=== PATIENT | male | born 1960 | race Caucasian/White ===

== ENCOUNTER 2022-06-03 05:24 | Inpatient (IN) | payer MEDICAID ==
[2022-06-03] VITALS (47 sets, daily range): BP systolic 87–139; BP diastolic 57–88
[~2022-06-03] VITALS: Ht 167.6 cm; Wt 103.0 kg
[2022-06-03 05:55] LABS: BASOPHILS % 0.8 % (0.0-2.0); EOSINOPHILS % 1.1 % (0.0-5.0); HEMATOCRIT. 39.3 % (42.0-52.0); HEMOGLOBIN. 13.6 g/dL (14.0-18.0); LYMPHOCYTES % 37.1 % (20.0-50.0); MEAN CORPUSCULAR HEMOGLOBIN 29.5 pg (28.0-32.0); MEAN CORPUSCULAR VOLUME 84.9 fL (80.0-94.0); MEAN PLATELET VOLUME 8.1 fl (7.4-10.4); MONOCYTES % 6.3 % (2.0-8.0); NEUTROPHILS % 54.7 % (40.0-76.0); PLATELET 189 x1000/uL (130-400); RED BLOOD CELL COUNT 4.63 mill/uL (4.7-6.1); RED CELL DISTRIBUTION WIDTH 14.2 % (11.6-14.6)
[2022-06-03 06:03] LABS: CHLORIDE 106 mEq/L (98-107)
[2022-06-03] MEDS ORDERED: SODIUM CHLORIDE 0.9% 1,000 ML IV SCH (06:15)
[2022-06-03 06:27] LABS: CLARITY URINE CLEAR (CLEAR); COLOR URINE YELLOW (YELLOW); KETONES URINE NEGATIVE (NEGATIVE); LEUKOCYTE ESTERASE URINE NEGATIVE (NEGATIVE); NITRITE URINE NEGATIVE (NEGATIVE); OCCULT BLOOD URINE NEGATIVE (NEGATIVE); PH URINE 5.5 (4.5-8.0); PROTEIN URINE 2+ (NEGATIVE); SPECIFIC GRAVITY URINE 1.018 (1.005-1.030)
[2022-06-03 06:33] LABS: PARTIAL THROMBOPLASTIN TIME 25.6 sec (23.4-31.0); PROTHROMBIN TIME 10.4 sec (9.6-11.0)
[2022-06-03] MEDS ORDERED: LIDOCAINE HCL 1%/EPI 1:200,000 30 ML VIAL ONE ×2 (06:39→06:40)
[2022-06-03] MEDS ORDERED: THROMBIN (BOVINE) 5000 UNITS/VIAL TOP ONE (06:39)
[2022-06-03] MEDS ORDERED: GENTAMICIN SULF 40MG/ML 2ML VIAL ONE (06:40)
[2022-06-03] MEDS ORDERED: LIDOCAINE HCL 1% 10 MG/ML 10ML VIAL ONE (06:47)
[2022-06-03] MEDS ORDERED: CEFAZOLIN SODIUM 1000MG/VIAL ONE (06:47)
[2022-06-03] MEDS ORDERED: ONDANSETRON HCL 4MG/2ML INJ ONE (06:47)
[2022-06-03] MEDS ORDERED: ROCURONIUM BROMIDE 10MG/ML VIAL 5ML IV ONE ×2 (06:47→08:41)
[2022-06-03] MEDS ORDERED: SUCCINYLCHOLINE CHLORIDE 200MG/10ML IV ONE (06:47)
[2022-06-03] MEDS ORDERED: DEXAMETHASONE 4MG/ML 1ML VIAL ONE (06:47)
[2022-06-03] MEDS ORDERED: PROPOFOL 200MG/20ML VIAL IV ONE ×2 (06:48→07:39)
[2022-06-03] MEDS ORDERED: GLYCOPYRROLATE 0.2 MG/ML 2ML VIAL ONE ×2 (06:48)
[2022-06-03] MEDS ORDERED: NEOSTIGMINE METHYLSULFATE 1MG/ML 10 ML VIAL ONE (06:48)
[2022-06-03] MEDS ORDERED: FENTANYL CITRATE/PF 50MCG/ML 2ML VIAL ONE (06:49)
[2022-06-03] MEDS ORDERED: MIDAZOLAM HCL 2 MG/2 ML VIAL ONE ×2 (06:49→09:07)
[2022-06-03] MEDS ORDERED: HYDROMORPHONE HCL/PF 2MG/ML CPJ ONE (08:05)
[2022-06-03] MEDS ORDERED: ATOR40TA70 PO (08:12)
[2022-06-03] MEDS ORDERED: TAMS-11 PO (08:12)
[2022-06-03] MEDS ORDERED: CLOP75TA33 PO (08:12)
[2022-06-03] MEDS ORDERED: INSU100I28 SQ (08:12)
[2022-06-03] MEDS ORDERED: GLIP10TA10 PO (08:12)
[2022-06-03] MEDS ORDERED: INSU100I24 SQ (08:12)
[2022-06-03] MEDS ORDERED: TRAM50TA PO (08:12)
[2022-06-03] MEDS ORDERED: BENA40TA91 PO (08:12)
[2022-06-03] MEDS ORDERED: LORA10TA7 PO (08:12)
[2022-06-03] MEDS ORDERED: ASPI-1497 PO (08:12)
[2022-06-03] MEDS ORDERED: FERR325T6 PO (08:12)
[2022-06-03] MEDS ORDERED: MIRT45TA83 PO (08:12)
[2022-06-03] MEDS ORDERED: METF-416 PO (08:12)
[2022-06-03] MEDS ORDERED: MEPERIDINE HCL/PF 25MG/ML CPJ IV PRN (09:15)
[2022-06-03] MEDS ORDERED: HYDROMORPHONE HCL/PF 2MG/ML CPJ IV PRN (09:15)
[2022-06-03] MEDS ORDERED: LABETALOL 5MG/ML SYR 20 MG/4 ML SYRINGE IV PRN (09:15)
[2022-06-03] MEDS ORDERED: ONDANSETRON HCL 4MG/2ML INJ IV PRN (09:15)
[2022-06-03] MEDS ORDERED: NALOXONE HCL 0.4MG/ML VIAL IV PRN (10:30)
[2022-06-03] MEDS: NICARDIPINE 100 MG in SODIUM CHLORIDE 0.9% 60 ML IV PRN (10:34)
[2022-06-03] MEDS: SODIUM CHLORIDE 0.9% 1,000 ML IV SCH ×2 (10:34→21:46)
[2022-06-03] MEDS: MORPHINE SULFATE 4 MG/ML CPJ (NOT FOR IM USE) IV PRN (11:37)
[2022-06-03] MEDS: DEXAMETHASONE 4MG/ML 1ML VIAL IV SCH ×3 (11:37→23:49)
[2022-06-03 12:39] LABS: BG BASE EXCESS -3.9 mmol/L (-2.0-2.0); BG CARBOXYHEMOGLOBIN 1.2 % (0.5-1.5); BG DEOXYHEMOGLOBIN 3.9 % (0.0-5.0); BG FRACTION INSPIRED OXYGEN 100; BG HCO3 ACT 22.8 mmol/L (22.0-26.0); BG METHEMOGLOBIN 0.4 % (0.0-1.5); BG OXYHEMOGLOBIN 94.5 % (94.0-97.0); BG PCO2 48.2 mmHg (35.0-45.0); BG PH 7.293 (7.350-7.450); BG PO2 87.6 mmHg (75.0-100.0); BG SAMPLE SITE RIGHT RADIAL; BG TOTAL HEMOGLOBIN 13.4 g/dL (12.0-18.0); BG VENT MODE VENT - AC
[2022-06-03] MEDS ORDERED: AMLODIPINE 5MG TABLET NG SCH (13:15)
[2022-06-03] MEDS ORDERED: CEFAZOLIN SODIUM 1000MG/VIAL IV SCH (14:00)
[2022-06-03] MEDS: CEFAZOLIN 1000MG PREMIX 50 ML IV SCH ×2 (14:07→22:36)
[2022-06-03] MEDS: PROPOFOL 10MG/ML 100ML 100 ML IV PRN ×3 (14:08→20:22)
[2022-06-03] MEDS: FENTANYL 2500MCG/250ML PMX 250 ML IV PRN (14:22)
[2022-06-03] MEDS ORDERED: IPRATROPIUM/ALBUTEROL 0.5-3(2.5)MG/3ML NEB HHN PRN (14:30)
[2022-06-03] MEDS: TAMSULOSIN HCL 0.4MG SR CAPSULE PO SCH (15:50)
[2022-06-03] MEDS ORDERED: DEXTROSE 50% WATER 50ML SYRINGE IV PRN (16:15)
[2022-06-03] MEDS: BLOOD SUGAR DIAGNOSTIC STRIP TEST SCH ×2 (16:30→20:20)
[2022-06-03] MEDS: INSULIN LISPRO 100 UNITS/ML SUBCUT SCH ×2 (17:06→20:23)
[2022-06-03] MEDS: ATORVASTATIN CALCIUM 40MG TABLET NG SCH (20:13)
[2022-06-03] MEDS: AMLODIPINE 5MG TABLET NG SCH (20:14)
[2022-06-04] VITALS (84 sets, daily range): BP systolic 84–158; BP diastolic 52–93
[2022-06-04] MEDS: PROPOFOL 10MG/ML 100ML 100 ML IV PRN ×4 (00:38→11:49)
[2022-06-04 05:01] LABS: BASOPHILS % 0.1 % (0.0-2.0); EOSINOPHILS % 0.1 % (0.0-5.0); HEMATOCRIT. 39.2 % (42.0-52.0); LYMPHOCYTES % 11.9 % (20.0-50.0); MEAN CORPUSCULAR HEMOGLOBIN 29.3 pg (28.0-32.0); MEAN CORPUSCULAR VOLUME 88.6 fL (80.0-94.0); MEAN PLATELET VOLUME 8.7 fl (7.4-10.4); MONOCYTES % 3.5 % (2.0-8.0); NEUTROPHILS % 84.4 % (40.0-76.0); PLATELET 180 x1000/uL (130-400); RED BLOOD CELL COUNT 4.43 mill/uL (4.7-6.1); RED CELL DISTRIBUTION WIDTH 14.7 % (11.6-14.6)
[2022-06-04] MEDS: DEXAMETHASONE 4MG/ML 1ML VIAL IV SCH ×2 (06:10→11:33)
[2022-06-04] MEDS: SODIUM CHLORIDE 0.9% 1,000 ML IV SCH ×3 (06:10→23:15)
[2022-06-04] MEDS: CEFAZOLIN 1000MG PREMIX 50 ML IV SCH ×2 (06:10→14:09)
[2022-06-04] MEDS: BLOOD SUGAR DIAGNOSTIC STRIP TEST SCH ×4 (06:10→21:00)
[2022-06-04] MEDS: INSULIN LISPRO 100 UNITS/ML SUBCUT SCH ×4 (06:11→22:41)
[2022-06-04] MEDS: AMLODIPINE 5MG TABLET NG SCH ×2 (08:06→22:40)
[2022-06-04] MEDS: TAMSULOSIN HCL 0.4MG SR CAPSULE PO SCH (08:06)
[2022-06-04 08:34] LABS: BG BASE EXCESS -6.3 mmol/L (-2.0-2.0); BG CARBOXYHEMOGLOBIN 0.7 % (0.5-1.5); BG DEOXYHEMOGLOBIN 6.1 % (0.0-5.0); BG HCO3 ACT 19.7 mmol/L (22.0-26.0); BG METHEMOGLOBIN 0.2 % (0.0-1.5); BG OXYGEN SATURATION 93.8 % (92.0-98.5); BG PCO2 40.9 mmHg (35.0-45.0); BG PO2 73.9 mmHg (75.0-100.0); BG SAMPLE SITE RIGHT RADIAL; BG TOTAL HEMOGLOBIN 12.1 g/dL (12.0-18.0); BG VENT MODE VENT - AC
[2022-06-04] MEDS ORDERED: SODIUM POLYSTYRENE SULFONATE 15 G/60 ML BOT PO NR ×2 (10:00→21:00)
[2022-06-04] MEDS ORDERED: INSULIN LISPRO 100 UNITS/ML SUBCUT NR ×2 (11:15→16:00)
[2022-06-04] MEDS: INSULIN GLARGINE 100 UNITS/ML SUBCUT SCH ×2 (11:34→22:41)
[2022-06-04] MEDS ORDERED: IPRATROPIUM/ALBUTEROL 0.5-3(2.5)MG/3ML NEB HHN PRN (11:45)
[2022-06-04] MEDS ORDERED: SODIUM BICARBONATE 8.4% 1 MEQ/ML 50ML SYR IV NR (11:45)
[2022-06-04] MEDS: CITRIC ACID/SODIUM CITRATE SOLN 30ML UDC PO SCH ×2 (14:09→16:24)
[2022-06-04] MEDS: FENTANYL 2500MCG/250ML PMX 250 ML IV PRN (14:10)
[2022-06-04] MEDS: ACETYLCYSTEINE 200MG/ML 20% VIAL 4ML INH SCH (15:39)
[2022-06-04] MEDS: AZITHROMYCIN 500 MG in DEXT 5% WATER 250 ML IV SCH (15:39)
[2022-06-04] MEDS: IPRATROPIUM/ALBUTEROL 0.5-3(2.5)MG/3ML NEB HHN SCH ×2 (15:39→20:06)
[2022-06-04] MEDS ORDERED: PROPOFOL 10MG/ML 100ML 100 ML IV PRN (16:15)
[2022-06-04] MEDS: ATORVASTATIN CALCIUM 40MG TABLET NG SCH (22:40)
[2022-06-05] VITALS (91 sets, daily range): BP systolic 89–188; BP diastolic 47–140
[2022-06-05] MEDS: IPRATROPIUM/ALBUTEROL 0.5-3(2.5)MG/3ML NEB HHN SCH ×5 (00:02→20:09)
[2022-06-05] MEDS: ACETYLCYSTEINE 200MG/ML 20% VIAL 4ML INH SCH ×2 (00:02→08:45)
[2022-06-05] MEDS: BLOOD SUGAR DIAGNOSTIC STRIP TEST SCH ×4 (05:24→20:30)
[2022-06-05] MEDS: INSULIN LISPRO 100 UNITS/ML SUBCUT SCH ×4 (06:31→20:29)
[2022-06-05] MEDS: NICARDIPINE 100 MG in SODIUM CHLORIDE 0.9% 60 ML IV PRN ×3 (07:15→18:25)
[2022-06-05 08:53] LABS: BG BASE EXCESS -0.5 mmol/L (-2.0-2.0); BG CARBOXYHEMOGLOBIN 0.5 % (0.5-1.5); BG DEOXYHEMOGLOBIN 4.4 % (0.0-5.0); BG FRACTION INSPIRED OXYGEN 70; BG HCO3 ACT 24.9 mmol/L (22.0-26.0); BG METHEMOGLOBIN 0.3 % (0.0-1.5); BG OXYGEN SATURATION 95.6 % (92.0-98.5); BG OXYHEMOGLOBIN 94.8 % (94.0-97.0); BG PCO2 43.7 mmHg (35.0-45.0); BG PH 7.373 (7.350-7.450); BG PO2 81.7 mmHg (75.0-100.0); BG SAMPLE SITE RIGHT RADIAL; BG TOTAL HEMOGLOBIN 10.9 g/dL (12.0-18.0); BG VENT MODE VENT - AC
[2022-06-05] MEDS: CITRIC ACID/SODIUM CITRATE SOLN 30ML UDC PO SCH ×3 (09:22→16:26)
[2022-06-05] MEDS: TAMSULOSIN HCL 0.4MG SR CAPSULE PO SCH (09:23)
[2022-06-05] MEDS: INSULIN GLARGINE 100 UNITS/ML SUBCUT SCH ×2 (09:24→20:31)
[2022-06-05] MEDS: AMLODIPINE 5MG TABLET NG SCH ×2 (09:24→20:20)
[2022-06-05] MEDS: SODIUM CHLORIDE 0.9% 1,000 ML IV SCH ×3 (09:25→23:36)
[2022-06-05] MEDS ORDERED: METHYLPREDNISOLONE SOD SUCC 125 MG/2 ML VIAL IV NR (10:30)
[2022-06-05] MEDS: AZITHROMYCIN 500 MG in DEXT 5% WATER 250 ML IV SCH (13:07)
[2022-06-05] MEDS: MORPHINE SULFATE 4 MG/ML CPJ (NOT FOR IM USE) IV PRN (14:06)
[2022-06-05] MEDS ORDERED: FUROSEMIDE 40MG/4ML VIAL IVP NR (14:15)
[2022-06-05 14:17] LABS: BG BASE EXCESS -1.6 mmol/L (-2.0-2.0); BG CARBOXYHEMOGLOBIN 0.3 % (0.5-1.5); BG DEOXYHEMOGLOBIN 13.6 % (0.0-5.0); BG FRACTION INSPIRED OXYGEN 40; BG HCO3 ACT 22.6 mmol/L (22.0-26.0); BG METHEMOGLOBIN 0.3 % (0.0-1.5); BG OXYGEN SATURATION 86.3 % (92.0-98.5); BG OXYHEMOGLOBIN 85.8 % (94.0-97.0); BG PCO2 36.4 mmHg (35.0-45.0); BG PH 7.411 (7.350-7.450); BG PO2 49.1 mmHg (75.0-100.0); BG SAMPLE SITE RIGHT RADIAL; BG TOTAL HEMOGLOBIN 11.5 g/dL (12.0-18.0); BG VENT MODE VENT - CPAP
[2022-06-05] MEDS: ATORVASTATIN CALCIUM 40MG TABLET NG SCH (20:20)
[2022-06-06] VITALS (96 sets, daily range): BP systolic 113–170; BP diastolic 34–116
[2022-06-06] MEDS: IPRATROPIUM/ALBUTEROL 0.5-3(2.5)MG/3ML NEB HHN SCH ×5 (00:10→16:34)
[2022-06-06] MEDS: ACETYLCYSTEINE 200MG/ML 20% VIAL 4ML INH SCH ×3 (00:10→16:34)
[2022-06-06 05:17] LABS: CHLORIDE 114 mEq/L (98-107)
[2022-06-06 05:20] LABS: HEMATOCRIT. 30.8 % (42.0-52.0); HEMOGLOBIN. 10.5 g/dL (14.0-18.0); MEAN CORPUSCULAR HEMOGLOBIN 29.9 pg (28.0-32.0); MEAN CORPUSCULAR VOLUME 87.7 fL (80.0-94.0); MEAN PLATELET VOLUME 8.9 fl (7.4-10.4); PLATELET 125 x1000/uL (130-400); RED BLOOD CELL COUNT 3.51 mill/uL (4.7-6.1); RED CELL DISTRIBUTION WIDTH 13.8 % (11.6-14.6)
[2022-06-06 05:25] LABS: PHOSPHORUS 3.3 mg/dL (2.5-4.9)
[2022-06-06] MEDS: INSULIN LISPRO 100 UNITS/ML SUBCUT SCH ×4 (05:34→21:21)
[2022-06-06] MEDS: BLOOD SUGAR DIAGNOSTIC STRIP TEST SCH ×4 (05:34→20:40)
[2022-06-06] MEDS: SODIUM CHLORIDE 0.9% 1,000 ML IV SCH ×2 (06:11→15:16)
[2022-06-06] MEDS: FENTANYL 2500MCG/250ML PMX 250 ML IV PRN (06:45)
[2022-06-06 08:14] LABS: PLATELET ESTIMATE SLIGHTLY DECREASED
[2022-06-06] MEDS: AMLODIPINE 5MG TABLET NG SCH ×2 (09:17→21:20)
[2022-06-06] MEDS: TAMSULOSIN HCL 0.4MG SR CAPSULE PO SCH (09:17)
[2022-06-06] MEDS: CITRIC ACID/SODIUM CITRATE SOLN 30ML UDC PO SCH ×3 (09:17→17:42)
[2022-06-06] MEDS: MORPHINE SULFATE 4 MG/ML CPJ (NOT FOR IM USE) IV PRN ×2 (09:19→22:22)
[2022-06-06] MEDS: INSULIN GLARGINE 100 UNITS/ML SUBCUT SCH ×2 (09:33→21:21)
[2022-06-06 09:39] LABS: BG BASE EXCESS -0.4 mmol/L (-2.0-2.0); BG CARBOXYHEMOGLOBIN 0.4 % (0.5-1.5); BG DEOXYHEMOGLOBIN 8.9 % (0.0-5.0); BG HCO3 ACT 23.4 mmol/L (22.0-26.0); BG METHEMOGLOBIN 0.2 % (0.0-1.5); BG OXYHEMOGLOBIN 90.5 % (94.0-97.0); BG PCO2 35.2 mmHg (35.0-45.0); BG PO2 60.1 mmHg (75.0-100.0); BG SAMPLE SITE RIGHT RADIAL; BG TOTAL HEMOGLOBIN 11.9 g/dL (12.0-18.0); BG VENT MODE VENT - CPAP
[2022-06-06] MEDS ORDERED: FUROSEMIDE 40MG/4ML VIAL IVP NR (10:00)
[2022-06-06] MEDS: NICARDIPINE 100 MG in SODIUM CHLORIDE 0.9% 60 ML IV PRN ×2 (11:50→19:01)
[2022-06-06] MEDS: AZITHROMYCIN 500 MG in DEXT 5% WATER 250 ML IV SCH (13:29)
[2022-06-06] MEDS: ATORVASTATIN CALCIUM 40MG TABLET NG SCH (21:20)
[2022-06-07] VITALS (91 sets, daily range): BP systolic 96–150; BP diastolic 28–108
[2022-06-07] MEDS: IPRATROPIUM/ALBUTEROL 0.5-3(2.5)MG/3ML NEB HHN SCH ×7 (00:02→23:58)
[2022-06-07] MEDS: ACETYLCYSTEINE 200MG/ML 20% VIAL 4ML INH SCH ×4 (00:03→23:58)
[2022-06-07] MEDS: NICARDIPINE 100 MG in SODIUM CHLORIDE 0.9% 60 ML IV PRN ×3 (01:47→17:48)
[2022-06-07] MEDS: MORPHINE SULFATE 4 MG/ML CPJ (NOT FOR IM USE) IV PRN (03:37)
[2022-06-07 05:51] LABS: BASOPHILS % 0.1 % (0.0-2.0); HEMOGLOBIN. 10.7 g/dL (14.0-18.0); LYMPHOCYTES % 13.8 % (20.0-50.0); MEAN CORPUSCULAR VOLUME 86.8 fL (80.0-94.0); MEAN PLATELET VOLUME 8.8 fl (7.4-10.4); MONOCYTES % 7.9 % (2.0-8.0); NEUTROPHILS % 78.2 % (40.0-76.0); PLATELET 133 x1000/uL (130-400); RED BLOOD CELL COUNT 3.69 mill/uL (4.7-6.1); RED CELL DISTRIBUTION WIDTH 13.5 % (11.6-14.6)
[2022-06-07 05:59] LABS: CHLORIDE 114 mEq/L (98-107)
[2022-06-07] MEDS: BLOOD SUGAR DIAGNOSTIC STRIP TEST SCH ×4 (06:27→20:47)
[2022-06-07] MEDS: HYDRALAZINE 20MG/ML VIAL IV PRN ×2 (06:31→22:39)
[2022-06-07] MEDS: INSULIN LISPRO 100 UNITS/ML SUBCUT SCH ×4 (06:34→21:09)
[2022-06-07] MEDS: AMLODIPINE 5MG TABLET NG SCH ×2 (09:50→21:07)
[2022-06-07] MEDS: CITRIC ACID/SODIUM CITRATE SOLN 30ML UDC PO SCH ×2 (09:50→13:39)
[2022-06-07] MEDS: TAMSULOSIN HCL 0.4MG SR CAPSULE PO SCH (09:50)
[2022-06-07] MEDS: INSULIN GLARGINE 100 UNITS/ML SUBCUT SCH ×2 (09:51→21:09)
[2022-06-07] MEDS: SODIUM CHLORIDE 0.9% 1,000 ML IV SCH (09:52)
[2022-06-07] MEDS: AZITHROMYCIN 500 MG in DEXT 5% WATER 250 ML IV SCH (13:39)
[2022-06-07] MEDS ORDERED: INSULIN GLARGINE 100 UNITS/ML SUBCUT NR (14:57)
[2022-06-07] MEDS: CEFEPIME 2,000 MG in DEXT 5% WATER 100 ML IV SCH (15:27)
[2022-06-07] MEDS ORDERED: FUROSEMIDE 40MG/4ML VIAL IVP NR (17:15)
[2022-06-07] MEDS: ATORVASTATIN CALCIUM 40MG TABLET NG SCH (21:07)
[2022-06-08] VITALS (89 sets, daily range): BP systolic 93–173; BP diastolic 41–134
[2022-06-08] MEDS: CEFEPIME 2,000 MG in DEXT 5% WATER 100 ML IV SCH ×2 (03:08→16:56)
[2022-06-08] MEDS: HYDRALAZINE 20MG/ML VIAL IV PRN (03:08)
[2022-06-08 05:00] LABS: BASOPHILS % 0.2 % (0.0-2.0); EOSINOPHILS % 0.1 % (0.0-5.0); HEMATOCRIT. 32.1 % (42.0-52.0); HEMOGLOBIN. 11.1 g/dL (14.0-18.0); LYMPHOCYTES % 15.1 % (20.0-50.0); MEAN CORPUSCULAR HEMOGLOBIN 29.6 pg (28.0-32.0); MEAN CORPUSCULAR VOLUME 85.3 fL (80.0-94.0); MEAN PLATELET VOLUME 8.8 fl (7.4-10.4); MONOCYTES % 6.1 % (2.0-8.0); NEUTROPHILS % 78.5 % (40.0-76.0); PLATELET 149 x1000/uL (130-400); RED BLOOD CELL COUNT 3.76 mill/uL (4.7-6.1); RED CELL DISTRIBUTION WIDTH 13.4 % (11.6-14.6)
[2022-06-08 05:04] LABS: CHLORIDE 109 mEq/L (98-107)
[2022-06-08] MEDS: IPRATROPIUM/ALBUTEROL 0.5-3(2.5)MG/3ML NEB HHN SCH ×4 (05:37→12:20)
[2022-06-08] MEDS: BLOOD SUGAR DIAGNOSTIC STRIP TEST SCH ×4 (05:38→20:43)
[2022-06-08] MEDS: INSULIN LISPRO 100 UNITS/ML SUBCUT SCH ×4 (06:22→20:41)
[2022-06-08] MEDS ORDERED: POTASSIUM CHLORIDE 20MEQ/PACKET PO NR (07:45)
[2022-06-08] MEDS: NICARDIPINE 100 MG in SODIUM CHLORIDE 0.9% 60 ML IV PRN (08:31)
[2022-06-08] MEDS: TAMSULOSIN HCL 0.4MG SR CAPSULE PO SCH (08:32)
[2022-06-08] MEDS: AMLODIPINE 5MG TABLET NG SCH ×2 (08:32→20:40)
[2022-06-08] MEDS: ACETYLCYSTEINE 200MG/ML 20% VIAL 4ML INH SCH ×2 (08:38→09:44)
[2022-06-08] MEDS ORDERED: HYDRALAZINE HCL 100MG TABLET PO NR (10:45)
[2022-06-08] MEDS ORDERED: FUROSEMIDE 40MG/4ML VIAL IVP NR (10:45)
[2022-06-08] MEDS: INSULIN GLARGINE 100 UNITS/ML SUBCUT SCH ×2 (11:15→20:43)
[2022-06-08] MEDS ORDERED: NICARDIPINE 100 MG in SODIUM CHLORIDE 0.9% 60 ML IV PRN (11:15)
[2022-06-08] MEDS ORDERED: CLONIDINE 0.1MG TABLET PO SCH (12:00)
[2022-06-08] MEDS ORDERED: METOPROLOL TARTRATE 5MG/5ML VIAL IV NR (12:37)
[2022-06-08] MEDS ORDERED: MAGNESIUM/ALUMINUM HYDROXIDE/SIMETHICONE 30ML UDC PO PRN (12:45)
[2022-06-08] MEDS: OMEPRAZOLE 20MG CAPSULE EXTENDED RELEASE PO SCH (13:14)
[2022-06-08] MEDS ORDERED: DILTIAZEM HCL 125 MG in DEXT 5% WATER 100 ML IV PRN (13:45)
[2022-06-08] MEDS ORDERED: HYDRALAZINE HCL 100MG TABLET PO SCH (14:00)
[2022-06-08] MEDS ORDERED: DIGOXIN 500MCG/2ML AMP IV NR ×2 (14:30→16:30)
[2022-06-08] MEDS ORDERED: HYDROCODONE/ACETAMINOPHEN 5/325MG TABLET PO PRN (17:00)
[2022-06-08] MEDS ORDERED: LORAZEPAM 0.5MG TABLET PO PRN (17:00)
[2022-06-08] MEDS ORDERED: NALOXONE HCL 0.4MG/ML VIAL IV PRN (17:15)
[2022-06-08] MEDS: LORAZEPAM 0.5MG TABLET PO PRN ×2 (17:17→22:58)
[2022-06-08] MEDS: ATORVASTATIN CALCIUM 40MG TABLET NG SCH (20:40)
[2022-06-08] MEDS ORDERED: ENOXAPARIN 40MG/0.4ML SYR SUBCUT SCH (21:00)
[2022-06-08] MEDS: CLONIDINE 0.1MG TABLET PO SCH (21:04)
[2022-06-09] VITALS (83 sets, daily range): BP systolic 62–192; BP diastolic 30–129
[2022-06-09] MEDS: ACETYLCYSTEINE 200MG/ML 20% VIAL 4ML INH SCH ×3 (00:29→15:38)
[2022-06-09] MEDS: CEFEPIME 2,000 MG in DEXT 5% WATER 100 ML IV SCH ×2 (03:03→16:42)
[2022-06-09] MEDS ORDERED: HYDRALAZINE 20MG/ML VIAL IV NR (05:15)
[2022-06-09] MEDS: OMEPRAZOLE 20MG CAPSULE EXTENDED RELEASE PO SCH (05:31)
[2022-06-09] MEDS: BLOOD SUGAR DIAGNOSTIC STRIP TEST SCH ×4 (05:31→21:07)
[2022-06-09] MEDS: CLONIDINE 0.1MG TABLET PO SCH (05:35)
[2022-06-09 06:01] LABS: BASOPHILS % 0.2 % (0.0-2.0); EOSINOPHILS % 0.3 % (0.0-5.0); HEMATOCRIT. 30.6 % (42.0-52.0); HEMOGLOBIN. 10.4 g/dL (14.0-18.0); LYMPHOCYTES % 14.2 % (20.0-50.0); MEAN CORPUSCULAR HEMOGLOBIN 29.6 pg (28.0-32.0); MEAN CORPUSCULAR VOLUME 86.9 fL (80.0-94.0); MONOCYTES % 6.7 % (2.0-8.0); NEUTROPHILS % 78.6 % (40.0-76.0); PLATELET 150 x1000/uL (130-400); RED BLOOD CELL COUNT 3.52 mill/uL (4.7-6.1); RED CELL DISTRIBUTION WIDTH 13.1 % (11.6-14.6)
[2022-06-09] MEDS: DILTIAZEM HCL 30MG TABLET PO SCH ×2 (06:28→11:40)
[2022-06-09] MEDS: INSULIN LISPRO 100 UNITS/ML SUBCUT SCH ×4 (06:29→21:19)
[2022-06-09 07:14] LABS: CHLORIDE 111 mEq/L (98-107)
[2022-06-09 07:36] LABS: PHOSPHORUS 3.6 mg/dL (2.5-4.9)
[2022-06-09] MEDS ORDERED: MORPHINE SULFATE 2 MG/ML CPJ (NOT FOR IM USE) IV NR (07:45)
[2022-06-09] MEDS ORDERED: ATROPINE SULFATE 1MG/10ML SYR ONE ×2 (08:03→09:31)
[2022-06-09] MEDS ORDERED: EPINEPHRINE 0.1MG/ML (1:10,000) 10ML SYR ONE ×2 (08:03→09:31)
[2022-06-09] MEDS ORDERED: NOREPINEPHRINE 32 MG in DEXT 5% WATER 218 ML IV PRN (08:15)
[2022-06-09] MEDS ORDERED: PHENYLEPHRINE 100 MG in DEXT 5% WATER 240 ML IV PRN (08:30)
[2022-06-09] MEDS ORDERED: PHENYLEPHRINE 50 MG in DEXT 5% WATER 245 ML IV PRN (08:30)
[2022-06-09 08:54] LABS: BG BASE EXCESS -8.5 mmol/L (-2.0-2.0); BG CARBOXYHEMOGLOBIN 0.3 % (0.5-1.5); BG DEOXYHEMOGLOBIN 2.4 % (0.0-5.0); BG HCO3 ACT 20.2 mmol/L (22.0-26.0); BG OXYGEN SATURATION 97.6 % (92.0-98.5); BG OXYHEMOGLOBIN 97.3 % (94.0-97.0); BG PCO2 55.9 mmHg (35.0-45.0); BG PH 7.175 (7.350-7.450); BG PO2 138.5 mmHg (75.0-100.0); BG SAMPLE SITE RIGHT RADIAL; BG VENT MODE VENT - AC
[2022-06-09] MEDS ORDERED: IOHEXOL-350 100 ML BOTTLE ONE (08:57)
[2022-06-09] MEDS: TAMSULOSIN HCL 0.4MG SR CAPSULE PO SCH (09:00)
[2022-06-09] MEDS: AMLODIPINE 5MG TABLET NG SCH (09:00)
[2022-06-09] MEDS ORDERED: DEXTROSE 50% WATER 50ML SYRINGE IV ONE (09:31)
[2022-06-09] MEDS ORDERED: SODIUM BICARBONATE 8.4% 1 MEQ/ML 50ML SYR IV ONE (09:31)
[2022-06-09] MEDS ORDERED: NALOXONE HCL 0.4 MG/ML 1ML VIAL ONE (09:31)
[2022-06-09] MEDS ORDERED: CALCIUM CHLORIDE 1GM/10ML SYR IV ONE (09:31)
[2022-06-09 11:08] LABS: HEMOGLOBIN. 10.4 g/dL (14.0-18.0); MEAN CORPUSCULAR VOLUME 86.8 fL (80.0-94.0); MEAN PLATELET VOLUME 8.4 fl (7.4-10.4); PLATELET 173 x1000/uL (130-400); RED BLOOD CELL COUNT 3.57 mill/uL (4.7-6.1); RED CELL DISTRIBUTION WIDTH 13.1 % (11.6-14.6)
[2022-06-09 11:15] LABS: INR 1.1; PROTHROMBIN TIME 11.6 sec (9.6-11.0)
[2022-06-09] MEDS: DEXAMETHASONE 4MG/ML 1ML VIAL IV SCH ×3 (11:30→23:48)
[2022-06-09] MEDS: ENOXAPARIN 30MG/0.3ML SYR SUBCUT SCH ×2 (11:30→21:18)
[2022-06-09] MEDS: INSULIN GLARGINE 100 UNITS/ML SUBCUT SCH ×2 (11:31→21:19)
[2022-06-09 11:57] LABS: CHLORIDE 111 mEq/L (98-107)
[2022-06-09] MEDS: FENTANYL CITRATE/PF 2,500 MCG in SODIUM CHLORIDE 0.9% 200 ML IV PRN (12:24)
[2022-06-09 12:31] LABS: BG SAMPLE SITE Right Radial
[2022-06-09 12:32] LABS: BG FRACTION INSPIRED OXYGEN 100; BG PEEP (cmH2O) 10 cmH2O; BG TIDAL VOLUME(mL) 500 mL; BG VENT MODE Vent- A/C; BG VENT RATE 18 set
[2022-06-09 12:35] LABS: BG BASE EXCESS -0.6 mmol/L (-2.0-2.0); BG HCO3 ACT 25.6 mmol/L (22.0-26.0); BG PCO2 48.8 mmHg (35.0-45.0); BG PH 7.337 (7.350-7.450)
[2022-06-09 12:36] LABS: BG CARBOXYHEMOGLOBIN 0.4 % (0.5-1.5); BG DEOXYHEMOGLOBIN 2.6 % (0.0-5.0); BG METHEMOGLOBIN 0.2 % (0.0-1.5); BG OXYGEN SATURATION 97.4 % (92.0-98.5); BG OXYHEMOGLOBIN 96.8 % (94.0-97.0); BG TOTAL HEMOGLOBIN 11.6 g/dL (12.0-18.0)
[2022-06-09] MEDS: METRONIDAZOLE 500MG TABLET PO SCH ×2 (14:00→21:17)
[2022-06-09] MEDS: IPRATROPIUM/ALBUTEROL 0.5-3(2.5)MG/3ML NEB HHN PRN ×2 (15:38→20:08)
[2022-06-09 20:36] LABS: PLATELET ESTIMATE NORMAL
[2022-06-10] VITALS (74 sets, daily range): BP systolic 118–196; BP diastolic 67–96
[2022-06-10] MEDS: CEFEPIME 2,000 MG in DEXT 5% WATER 100 ML IV SCH ×2 (03:08→16:33)
[2022-06-10] MEDS: BLOOD SUGAR DIAGNOSTIC STRIP TEST SCH ×4 (05:30→20:23)
[2022-06-10 05:35] LABS: HEMOGLOBIN. 9.7 g/dL (14.0-18.0); MEAN CORPUSCULAR HEMOGLOBIN 29.2 pg (28.0-32.0); MEAN CORPUSCULAR VOLUME 86.9 fL (80.0-94.0); MEAN PLATELET VOLUME 9.6 fl (7.4-10.4); PLATELET 143 x1000/uL (130-400); RED BLOOD CELL COUNT 3.33 mill/uL (4.7-6.1); RED CELL DISTRIBUTION WIDTH 12.9 % (11.6-14.6)
[2022-06-10] MEDS: DEXAMETHASONE 4MG/ML 1ML VIAL IV SCH ×4 (05:39→23:52)
[2022-06-10] MEDS: METRONIDAZOLE 500MG TABLET PO SCH ×3 (05:39→21:51)
[2022-06-10] MEDS: OMEPRAZOLE 20MG CAPSULE EXTENDED RELEASE PO SCH (05:40)
[2022-06-10] MEDS: INSULIN LISPRO 100 UNITS/ML SUBCUT SCH ×4 (05:44→21:52)
[2022-06-10 07:33] LABS: PLATELET ESTIMATE NORMAL
[2022-06-10] MEDS: TAMSULOSIN HCL 0.4MG SR CAPSULE PO SCH (08:16)
[2022-06-10] MEDS: ENOXAPARIN 30MG/0.3ML SYR SUBCUT SCH ×2 (08:16→21:51)
[2022-06-10] MEDS: FUROSEMIDE 40MG/4ML VIAL IVP SCH (08:16)
[2022-06-10 08:21] LABS: BG BASE EXCESS 0.9 mmol/L (-2.0-2.0); BG CARBOXYHEMOGLOBIN 0.3 % (0.5-1.5); BG DEOXYHEMOGLOBIN 1.7 % (0.0-5.0); BG FRACTION INSPIRED OXYGEN 80; BG HCO3 ACT 25.4 mmol/L (22.0-26.0); BG METHEMOGLOBIN 0.2 % (0.0-1.5); BG OXYGEN SATURATION 98.3 % (92.0-98.5); BG OXYHEMOGLOBIN 97.8 % (94.0-97.0); BG PH 7.421 (7.350-7.450); BG PO2 121.5 mmHg (75.0-100.0); BG SAMPLE SITE RIGHT RADIAL; BG TOTAL HEMOGLOBIN 10.6 g/dL (12.0-18.0); BG VENT MODE VENT - AC
[2022-06-10] MEDS: INSULIN GLARGINE 100 UNITS/ML SUBCUT SCH ×2 (09:44→21:53)
[2022-06-10] MEDS: PROPOFOL 10MG/ML 100ML 100 ML IV PRN (12:43)
[2022-06-10] MEDS: DILTIAZEM HCL 30MG TABLET NG SCH ×2 (14:00→21:52)
[2022-06-10] MEDS: FENTANYL CITRATE/PF 2,500 MCG in SODIUM CHLORIDE 0.9% 200 ML IV PRN (16:34)
[2022-06-11] VITALS (96 sets, daily range): BP systolic 118–204; BP diastolic 64–101
[2022-06-11] MEDS: PROPOFOL 10MG/ML 100ML 100 ML IV PRN ×2 (01:29→09:48)
[2022-06-11] MEDS: CEFEPIME 2,000 MG in DEXT 5% WATER 100 ML IV SCH ×2 (03:28→18:00)
[2022-06-11] MEDS: DEXAMETHASONE 4MG/ML 1ML VIAL IV SCH ×3 (05:16→18:01)
[2022-06-11] MEDS: OMEPRAZOLE 20MG CAPSULE EXTENDED RELEASE PO SCH (05:16)
[2022-06-11] MEDS: METRONIDAZOLE 500MG TABLET PO SCH ×3 (05:16→20:49)
[2022-06-11] MEDS: DILTIAZEM HCL 30MG TABLET NG SCH ×3 (05:17→20:50)
[2022-06-11 05:22] LABS: HEMATOCRIT. 29.4 % (42.0-52.0); HEMOGLOBIN. 10.1 g/dL (14.0-18.0); MEAN CORPUSCULAR HEMOGLOBIN 29.5 pg (28.0-32.0); PLATELET 185 x1000/uL (130-400); RED BLOOD CELL COUNT 3.42 mill/uL (4.7-6.1); RED CELL DISTRIBUTION WIDTH 13.3 % (11.6-14.6)
[2022-06-11] MEDS: BLOOD SUGAR DIAGNOSTIC STRIP TEST SCH ×5 (05:30→23:49)
[2022-06-11] MEDS: INSULIN LISPRO 100 UNITS/ML SUBCUT SCH ×4 (05:32→20:50)
[2022-06-11] MEDS: FUROSEMIDE 40MG/4ML VIAL IVP SCH (08:26)
[2022-06-11] MEDS: ENOXAPARIN 30MG/0.3ML SYR SUBCUT SCH ×2 (08:27→20:50)
[2022-06-11] MEDS: TAMSULOSIN HCL 0.4MG SR CAPSULE PO SCH (08:27)
[2022-06-11] MEDS: INSULIN GLARGINE 100 UNITS/ML SUBCUT SCH ×2 (08:30→22:55)
[2022-06-11 08:57] LABS: BG BASE EXCESS -1.4 mmol/L (-2.0-2.0); BG CARBOXYHEMOGLOBIN 0.4 % (0.5-1.5); BG FRACTION INSPIRED OXYGEN 60; BG HCO3 ACT 23.4 mmol/L (22.0-26.0); BG OXYHEMOGLOBIN 94.6 % (94.0-97.0); BG PCO2 39.8 mmHg (35.0-45.0); BG PH 7.388 (7.350-7.450); BG PO2 77.1 mmHg (75.0-100.0); BG SAMPLE SITE RIGHT RADIAL; BG TOTAL HEMOGLOBIN 10.6 g/dL (12.0-18.0); BG VENT MODE VENT - AC
[2022-06-11 09:49] LABS: PLATELET ESTIMATE NORMAL
[2022-06-11] MEDS ORDERED: PROPOFOL 10MG/ML 100ML 100 ML IV PRN (15:15)
[2022-06-12] VITALS (58 sets, daily range): BP systolic 132–202; BP diastolic 72–100
[2022-06-12] MEDS ORDERED: HYDRALAZINE 20MG/ML VIAL IV NR
[2022-06-12] MEDS: INSULIN LISPRO 100 UNITS/ML SUBCUT SCH ×4 (00:07→18:51)
[2022-06-12] MEDS: CEFEPIME 2,000 MG in DEXT 5% WATER 100 ML IV SCH (04:52)
[2022-06-12] MEDS: BLOOD SUGAR DIAGNOSTIC STRIP TEST SCH ×3 (05:12→18:48)
[2022-06-12] MEDS: METRONIDAZOLE 500MG TABLET PO SCH ×3 (05:17→21:49)
[2022-06-12] MEDS: DILTIAZEM HCL 30MG TABLET NG SCH (05:17)
[2022-06-12] MEDS: OMEPRAZOLE 20MG CAPSULE EXTENDED RELEASE PO SCH (05:17)
[2022-06-12] MEDS: FENTANYL CITRATE/PF 2,500 MCG in SODIUM CHLORIDE 0.9% 200 ML IV PRN (05:25)
[2022-06-12 08:09] LABS: BG BASE EXCESS 2.5 mmol/L (-2.0-2.0); BG CARBOXYHEMOGLOBIN 0.3 % (0.5-1.5); BG DEOXYHEMOGLOBIN 5.1 % (0.0-5.0); BG METHEMOGLOBIN 0.3 % (0.0-1.5); BG OXYGEN SATURATION 94.9 % (92.0-98.5); BG OXYHEMOGLOBIN 94.3 % (94.0-97.0); BG PCO2 31.4 mmHg (35.0-45.0); BG PH 7.519 (7.350-7.450); BG PO2 72.4 mmHg (75.0-100.0); BG SAMPLE SITE RIGHT RADIAL; BG TOTAL HEMOGLOBIN 10.8 g/dL (12.0-18.0); BG VENT MODE VENT - AC
[2022-06-12] MEDS: ENOXAPARIN 30MG/0.3ML SYR SUBCUT SCH ×2 (09:00→19:57)
[2022-06-12 10:01] LABS: BASOPHILS % 0.2 % (0.0-2.0); HEMATOCRIT. 32.4 % (42.0-52.0); HEMOGLOBIN. 11.2 g/dL (14.0-18.0); LYMPHOCYTES % 11.3 % (20.0-50.0); MEAN CORPUSCULAR HEMOGLOBIN 29.2 pg (28.0-32.0); MEAN CORPUSCULAR VOLUME 84.7 fL (80.0-94.0); MEAN PLATELET VOLUME 9.1 fl (7.4-10.4); MONOCYTES % 10.3 % (2.0-8.0); NEUTROPHILS % 78.2 % (40.0-76.0); PLATELET 183 x1000/uL (130-400); RED BLOOD CELL COUNT 3.82 mill/uL (4.7-6.1)
[2022-06-12] MEDS: HYDRALAZINE 20MG/ML VIAL IV PRN ×2 (10:11→19:56)
[2022-06-12] MEDS: DEXAMETHASONE 4MG/ML 1ML VIAL IV SCH ×2 (10:12→17:52)
[2022-06-12] MEDS: FUROSEMIDE 40MG/4ML VIAL IVP SCH (10:12)
[2022-06-12] MEDS: TAMSULOSIN HCL 0.4MG SR CAPSULE PO SCH (10:14)
[2022-06-12] MEDS: INSULIN GLARGINE 100 UNITS/ML SUBCUT SCH ×2 (11:24→21:50)
[2022-06-12] MEDS: DILTIAZEM HCL 60MG TABLET NG SCH ×2 (13:26→21:49)
[2022-06-12] MEDS ORDERED: ACETAMINOPHEN 650MG/20.3ML UDC PO NR (14:00)
[2022-06-12] MEDS: CEFTRIAXONE 1,000 MG in DEXTROSE 5% WATER 50 ML IV SCH (17:53)
[2022-06-12] MEDS: ACETAMINOPHEN 650MG/20.3ML UDC PO PRN (20:41)
[2022-06-12] MEDS: MORPHINE SULFATE 2 MG/ML CPJ (NOT FOR IM USE) IV PRN (22:17)
[2022-06-13] VITALS (32 sets, daily range): BP systolic 112–187; BP diastolic 64–120
[2022-06-13] MEDS: INSULIN LISPRO 100 UNITS/ML SUBCUT SCH ×4 (00:17→17:38)
[2022-06-13] MEDS: BLOOD SUGAR DIAGNOSTIC STRIP TEST SCH ×4 (00:18→17:33)
[2022-06-13] MEDS: MORPHINE SULFATE 2 MG/ML CPJ (NOT FOR IM USE) IV PRN (02:55)
[2022-06-13] MEDS: HYDRALAZINE 20MG/ML VIAL IV PRN (03:45)
[2022-06-13 05:37] LABS: CHLORIDE 111 mEq/L (98-107); HEMATOCRIT. 35.5 % (42.0-52.0); HEMOGLOBIN. 12.1 g/dL (14.0-18.0); MEAN CORPUSCULAR HEMOGLOBIN 29.4 pg (28.0-32.0); RED BLOOD CELL COUNT 4.13 mill/uL (4.7-6.1); RED CELL DISTRIBUTION WIDTH 12.6 % (11.6-14.6)
[2022-06-13 05:44] LABS: PHOSPHORUS 3.1 mg/dL (2.5-4.9)
[2022-06-13] MEDS: DILTIAZEM HCL 60MG TABLET NG SCH ×3 (06:00→22:14)
[2022-06-13] MEDS: METRONIDAZOLE 500MG TABLET PO SCH ×3 (06:00→22:15)
[2022-06-13] MEDS: OMEPRAZOLE 20MG CAPSULE EXTENDED RELEASE PO SCH (06:30)
[2022-06-13 07:31] LABS: MEAN PLATELET VOLUME 9.8 fl (7.4-10.4); PLATELET 185 x1000/uL (130-400)
[2022-06-13] MEDS: FUROSEMIDE 40MG/4ML VIAL IVP SCH (08:36)
[2022-06-13] MEDS: DEXAMETHASONE 4MG/ML 1ML VIAL IV SCH (08:36)
[2022-06-13] MEDS: TAMSULOSIN HCL 0.4MG SR CAPSULE PO SCH (08:37)
[2022-06-13] MEDS: ENOXAPARIN 30MG/0.3ML SYR SUBCUT SCH ×2 (08:37→22:15)
[2022-06-13 09:36] LABS: BG BASE EXCESS 2.2 mmol/L (-2.0-2.0); BG CARBOXYHEMOGLOBIN 0.3 % (0.5-1.5); BG DEOXYHEMOGLOBIN 4.1 % (0.0-5.0); BG FRACTION INSPIRED OXYGEN 65; BG HCO3 ACT 25.6 mmol/L (22.0-26.0); BG METHEMOGLOBIN 0.3 % (0.0-1.5); BG OXYGEN SATURATION 95.9 % (92.0-98.5); BG OXYHEMOGLOBIN 95.3 % (94.0-97.0); BG PO2 84.2 mmHg (75.0-100.0); BG SAMPLE SITE RIGHT RADIAL; BG TOTAL HEMOGLOBIN 13.1 g/dL (12.0-18.0); BG VENT MODE VENT - AC
[2022-06-13] MEDS: INSULIN GLARGINE 100 UNITS/ML SUBCUT SCH ×2 (10:58→22:16)
[2022-06-13 11:02] LABS: PLATELET ESTIMATE NORMAL
[2022-06-13] MEDS: HYDRALAZINE HCL 50MG TABLET PO SCH ×2 (13:07→22:15)
[2022-06-13] MEDS: CEFTRIAXONE 1,000 MG in DEXTROSE 5% WATER 50 ML IV SCH (15:49)
[2022-06-14] VITALS (43 sets, daily range): BP systolic 129–166; BP diastolic 59–86
[2022-06-14] MEDS: BLOOD SUGAR DIAGNOSTIC STRIP TEST SCH ×5 (00:16→23:04)
[2022-06-14] MEDS: INSULIN LISPRO 100 UNITS/ML SUBCUT SCH ×5 (00:25→23:08)
[2022-06-14 04:45] LABS: EOSINOPHILS % 0.1 % (0.0-5.0); HEMATOCRIT. 34.5 % (42.0-52.0); HEMOGLOBIN. 11.8 g/dL (14.0-18.0); LYMPHOCYTES % 9.3 % (20.0-50.0); MEAN CORPUSCULAR HEMOGLOBIN 28.9 pg (28.0-32.0); MEAN CORPUSCULAR VOLUME 84.5 fL (80.0-94.0); MONOCYTES % 5.4 % (2.0-8.0); NEUTROPHILS % 85.2 % (40.0-76.0); PLATELET 222 x1000/uL (130-400); RED BLOOD CELL COUNT 4.09 mill/uL (4.7-6.1)
[2022-06-14 04:55] LABS: CHLORIDE 111 mEq/L (98-107)
[2022-06-14] MEDS: METRONIDAZOLE 500MG TABLET PO SCH ×2 (05:46→13:39)
[2022-06-14] MEDS: OMEPRAZOLE 20MG CAPSULE EXTENDED RELEASE PO SCH (05:46)
[2022-06-14] MEDS: DILTIAZEM HCL 60MG TABLET NG SCH ×3 (05:47→21:54)
[2022-06-14] MEDS: HYDRALAZINE HCL 50MG TABLET PO SCH ×3 (05:48→21:54)
[2022-06-14] MEDS: FUROSEMIDE 40MG/4ML VIAL IVP SCH (09:11)
[2022-06-14] MEDS: ENOXAPARIN 30MG/0.3ML SYR SUBCUT SCH ×2 (09:11→21:55)
[2022-06-14] MEDS: TAMSULOSIN HCL 0.4MG SR CAPSULE PO SCH (09:11)
[2022-06-14] MEDS: INSULIN GLARGINE 100 UNITS/ML SUBCUT SCH ×2 (09:14→21:57)
[2022-06-14] MEDS: HYDRALAZINE 20MG/ML VIAL IV PRN (11:57)
[2022-06-14] MEDS: CEFTRIAXONE 1,000 MG in DEXTROSE 5% WATER 50 ML IV SCH (16:54)
[2022-06-15] VITALS (73 sets, daily range): BP systolic 108–188; BP diastolic 63–124
[2022-06-15 05:46] LABS: BASOPHILS % 0.1 % (0.0-2.0); EOSINOPHILS % 0.2 % (0.0-5.0); HEMATOCRIT. 35.7 % (42.0-52.0); HEMOGLOBIN. 12.2 g/dL (14.0-18.0); LYMPHOCYTES % 10.5 % (20.0-50.0); MEAN CORPUSCULAR HEMOGLOBIN 29.1 pg (28.0-32.0); MEAN CORPUSCULAR VOLUME 85.4 fL (80.0-94.0); MEAN PLATELET VOLUME 9.6 fl (7.4-10.4); MONOCYTES % 4.2 % (2.0-8.0); PLATELET 219 x1000/uL (130-400); RED BLOOD CELL COUNT 4.19 mill/uL (4.7-6.1); RED CELL DISTRIBUTION WIDTH 13.1 % (11.6-14.6)
[2022-06-15] MEDS: DILTIAZEM HCL 60MG TABLET NG SCH ×3 (05:53→21:54)
[2022-06-15] MEDS: OMEPRAZOLE 20MG CAPSULE EXTENDED RELEASE PO SCH (05:54)
[2022-06-15] MEDS: HYDRALAZINE HCL 50MG TABLET PO SCH ×3 (05:54→22:40)
[2022-06-15] MEDS: BLOOD SUGAR DIAGNOSTIC STRIP TEST SCH ×3 (05:55→17:10)
[2022-06-15] MEDS: INSULIN LISPRO 100 UNITS/ML SUBCUT SCH ×3 (05:55→17:31)
[2022-06-15 06:08] LABS: CHLORIDE 108 mEq/L (98-107)
[2022-06-15] MEDS: FUROSEMIDE 40MG/4ML VIAL IVP SCH (08:32)
[2022-06-15] MEDS: ENOXAPARIN 30MG/0.3ML SYR SUBCUT SCH ×2 (08:35→21:00)
[2022-06-15] MEDS: TAMSULOSIN HCL 0.4MG SR CAPSULE PO SCH (08:36)
[2022-06-15] MEDS ORDERED: MIDODRINE HCL 5MG TABLET PO SCH (09:00)
[2022-06-15] MEDS: INSULIN GLARGINE 100 UNITS/ML SUBCUT SCH ×2 (09:14→22:41)
[2022-06-15] MEDS ORDERED: INSULIN GLARGINE 100 UNITS/ML SUBCUT SCH (12:45)
[2022-06-15] MEDS ORDERED: LIDOCAINE HCL/PF 1% 10 MG/ML 5ML VIAL ONE (12:47)
[2022-06-15] MEDS: IPRATROPIUM/ALBUTEROL 0.5-3(2.5)MG/3ML NEB HHN SCH ×2 (14:38→20:52)
[2022-06-15] MEDS: CEFTRIAXONE 1,000 MG in DEXTROSE 5% WATER 50 ML IV SCH (16:16)
[2022-06-15 18:20] LABS: TOTAL IRON BINDING CAPACITY 231 ug/dL (250-450)
[2022-06-15 18:52] LABS: FOLIC ACID (FOLATE) SERUM 16.1 ng/mL (>5.38)
[2022-06-15 20:12] LABS: PROTHROMBIN TIME 10.3 sec (9.6-11.0)
[2022-06-16] VITALS (86 sets, daily range): BP systolic 113–156; BP diastolic 60–95
[2022-06-16] MEDS: BLOOD SUGAR DIAGNOSTIC STRIP TEST SCH ×5 (00:17→23:36)
[2022-06-16] MEDS: INSULIN LISPRO 100 UNITS/ML SUBCUT SCH ×5 (00:20→23:40)
[2022-06-16] MEDS: IPRATROPIUM/ALBUTEROL 0.5-3(2.5)MG/3ML NEB HHN SCH ×4 (01:24→20:45)
[2022-06-16] MEDS: HYDRALAZINE HCL 50MG TABLET PO SCH ×3 (05:16→21:51)
[2022-06-16] MEDS: DILTIAZEM HCL 60MG TABLET NG SCH ×3 (05:17→21:51)
[2022-06-16 05:26] LABS: BASOPHILS % 0.1 % (0.0-2.0); EOSINOPHILS % 0.2 % (0.0-5.0); HEMATOCRIT. 35.9 % (42.0-52.0); LYMPHOCYTES % 10.7 % (20.0-50.0); MEAN CORPUSCULAR HEMOGLOBIN 28.9 pg (28.0-32.0); MEAN CORPUSCULAR VOLUME 86.5 fL (80.0-94.0); MEAN PLATELET VOLUME 9.4 fl (7.4-10.4); MONOCYTES % 4.5 % (2.0-8.0); NEUTROPHILS % 84.5 % (40.0-76.0); PLATELET 205 x1000/uL (130-400); RED BLOOD CELL COUNT 4.15 mill/uL (4.7-6.1); RED CELL DISTRIBUTION WIDTH 13.1 % (11.6-14.6)
[2022-06-16 05:34] LABS: CHLORIDE 113 mEq/L (98-107)
[2022-06-16] MEDS: OMEPRAZOLE 20MG CAPSULE EXTENDED RELEASE PO SCH (06:30)
[2022-06-16 07:44] LABS: BG CARBOXYHEMOGLOBIN 0.5 % (0.5-1.5); BG DEOXYHEMOGLOBIN 1.3 % (0.0-5.0); BG HCO3 ACT 28.3 mmol/L (22.0-26.0); BG METHEMOGLOBIN 0.2 % (0.0-1.5); BG OXYGEN SATURATION 98.7 % (92.0-98.5); BG PCO2 41.6 mmHg (35.0-45.0); BG PH 7.451 (7.350-7.450); BG PO2 148.1 mmHg (75.0-100.0); BG SAMPLE SITE RIGHT RADIAL; BG TOTAL HEMOGLOBIN 13.7 g/dL (12.0-18.0); BG VENT MODE VENT - AC
[2022-06-16] MEDS: FUROSEMIDE 40MG/4ML VIAL IVP SCH (09:46)
[2022-06-16] MEDS: DEXTROSE 5% WATER 1,000 ML IV SCH (09:46)
[2022-06-16] MEDS: TAMSULOSIN HCL 0.4MG SR CAPSULE PO SCH (09:47)
[2022-06-16] MEDS: INSULIN GLARGINE 100 UNITS/ML SUBCUT SCH ×2 (11:05→23:40)
[2022-06-16] MEDS ORDERED: ROCURONIUM BROMIDE 10MG/ML VIAL 5ML IV ONE ×2 (15:06→15:51)
[2022-06-16] MEDS ORDERED: FENTANYL CITRATE/PF 50MCG/ML 2ML VIAL ONE (15:06)
[2022-06-16] MEDS ORDERED: PHENYLEPHRINE HCL 10 MG/ML 1ML (IV VIAL) IV ONE (15:57)
[2022-06-16] MEDS: CEFTRIAXONE 1,000 MG in DEXTROSE 5% WATER 50 ML IV SCH (17:33)
[2022-06-17] VITALS (81 sets, daily range): BP systolic 90–140; BP diastolic 35–77
[2022-06-17] MEDS: IPRATROPIUM/ALBUTEROL 0.5-3(2.5)MG/3ML NEB HHN SCH ×4 (01:01→20:01)
[2022-06-17] MEDS: OMEPRAZOLE 20MG CAPSULE EXTENDED RELEASE PO SCH (01:31)
[2022-06-17] MEDS: HYDRALAZINE HCL 50MG TABLET PO SCH ×3 (01:31→22:11)
[2022-06-17] MEDS: DILTIAZEM HCL 60MG TABLET NG SCH ×3 (01:31→22:12)
[2022-06-17] MEDS: BLOOD SUGAR DIAGNOSTIC STRIP TEST SCH ×4 (05:28→23:23)
[2022-06-17] MEDS: INSULIN LISPRO 100 UNITS/ML SUBCUT SCH ×4 (05:31→23:24)
[2022-06-17] MEDS: DEXTROSE 5% WATER 1,000 ML IV SCH (05:31)
[2022-06-17 05:32] LABS: CHLORIDE 109 mEq/L (98-107)
[2022-06-17 05:47] LABS: PROTHROMBIN TIME 10.8 sec (9.6-11.0)
[2022-06-17 08:11] LABS: BASOPHILS % 0.2 % (0.0-2.0); EOSINOPHILS % 0.4 % (0.0-5.0); HEMATOCRIT. 31.9 % (42.0-52.0); HEMOGLOBIN. 10.8 g/dL (14.0-18.0); LYMPHOCYTES % 11.6 % (20.0-50.0); MEAN CORPUSCULAR HEMOGLOBIN 29.1 pg (28.0-32.0); MEAN CORPUSCULAR VOLUME 85.9 fL (80.0-94.0); MEAN PLATELET VOLUME 9.3 fl (7.4-10.4); MONOCYTES % 4.3 % (2.0-8.0); NEUTROPHILS % 83.5 % (40.0-76.0); PLATELET 194 x1000/uL (130-400); RED BLOOD CELL COUNT 3.72 mill/uL (4.7-6.1); RED CELL DISTRIBUTION WIDTH 13.1 % (11.6-14.6)
[2022-06-17 09:08] LABS: BG BASE EXCESS 4.1 mmol/L (-2.0-2.0); BG CARBOXYHEMOGLOBIN 0.3 % (0.5-1.5); BG DEOXYHEMOGLOBIN 6.4 % (0.0-5.0); BG FRACTION INSPIRED OXYGEN 40; BG METHEMOGLOBIN 0.4 % (0.0-1.5); BG OXYGEN SATURATION 93.6 % (92.0-98.5); BG OXYHEMOGLOBIN 92.9 % (94.0-97.0); BG PCO2 39.3 mmHg (35.0-45.0); BG SAMPLE SITE RIGHT RADIAL; BG TOTAL HEMOGLOBIN 12.2 g/dL (12.0-18.0); BG VENT MODE VENT - AC
[2022-06-17] MEDS: FUROSEMIDE 40MG/4ML VIAL IVP SCH (10:09)
[2022-06-17] MEDS: TAMSULOSIN HCL 0.4MG SR CAPSULE PO SCH (10:10)
[2022-06-17] MEDS: INSULIN GLARGINE 100 UNITS/ML SUBCUT SCH ×2 (10:32→22:12)
[2022-06-17] MEDS ORDERED: CEFAZOLIN 1000MG PREMIX 50 ML IV NR (11:00)
[2022-06-17] MEDS ORDERED: EPHEDRINE SULFATE 50MG/ML VIAL ONE (11:41)
[2022-06-17] MEDS ORDERED: MIDAZOLAM HCL 5 MG/5 ML VIAL ONE (11:41)
[2022-06-17] MEDS ORDERED: ROCURONIUM BROMIDE 10MG/ML VIAL 5ML IV ONE (11:41)
[2022-06-17] MEDS ORDERED: GLYCOPYRROLATE 0.2 MG/ML 2ML VIAL ONE (11:42)
[2022-06-17] MEDS ORDERED: LACTULOSE 20G/30ML UDC PO PRN (17:00)
[2022-06-18] VITALS (93 sets, daily range): BP systolic 92–158; BP diastolic 55–82
[2022-06-18] MEDS: IPRATROPIUM/ALBUTEROL 0.5-3(2.5)MG/3ML NEB HHN SCH ×4 (02:14→20:19)
[2022-06-18 05:47] LABS: CHLORIDE 112 mEq/L (98-107)
[2022-06-18 05:50] LABS: BASOPHILS % 0.3 % (0.0-2.0); EOSINOPHILS % 0.7 % (0.0-5.0); HEMATOCRIT. 32.2 % (42.0-52.0); HEMOGLOBIN. 10.9 g/dL (14.0-18.0); LYMPHOCYTES % 11.7 % (20.0-50.0); MEAN CORPUSCULAR HEMOGLOBIN 29.6 pg (28.0-32.0); MEAN CORPUSCULAR VOLUME 87.3 fL (80.0-94.0); MEAN PLATELET VOLUME 10.4 fl (7.4-10.4); MONOCYTES % 4.3 % (2.0-8.0); PLATELET 168 x1000/uL (130-400); RED BLOOD CELL COUNT 3.68 mill/uL (4.7-6.1)
[2022-06-18] MEDS: BLOOD SUGAR DIAGNOSTIC STRIP TEST SCH ×3 (06:14→18:52)
[2022-06-18] MEDS: ACETAMINOPHEN 650MG/20.3ML UDC PO PRN ×2 (08:26→21:51)
[2022-06-18] MEDS: FUROSEMIDE 40MG/4ML VIAL IVP SCH (08:27)
[2022-06-18] MEDS: DOCUSATE SODIUM SUGAR FREE 100MG/10ML UDC NG SCH (08:27)
[2022-06-18] MEDS: TAMSULOSIN HCL 0.4MG SR CAPSULE PO SCH (08:28)
[2022-06-18] MEDS: DILTIAZEM HCL 60MG TABLET NG SCH ×3 (08:28→21:52)
[2022-06-18] MEDS: HYDRALAZINE HCL 50MG TABLET PO SCH ×3 (08:29→21:52)
[2022-06-18] MEDS: OMEPRAZOLE 20MG CAPSULE EXTENDED RELEASE PO SCH (08:29)
[2022-06-18] MEDS: INSULIN LISPRO 100 UNITS/ML SUBCUT SCH ×3 (08:30→18:53)
[2022-06-18] MEDS: DEXTROSE 5% WATER 1,000 ML IV SCH (08:31)
[2022-06-18] MEDS: INSULIN GLARGINE 100 UNITS/ML SUBCUT SCH ×2 (10:57→21:51)
[2022-06-18] MEDS: CEFTRIAXONE 1,000 MG in DEXTROSE 5% WATER 50 ML IV SCH (13:59)
[2022-06-18] MEDS: BISACODYL 10MG SUPP PR SCH (18:52)
[2022-06-18] MEDS: LACTULOSE 20G/30ML UDC PO SCH (21:53)
[2022-06-19] VITALS (49 sets, daily range): BP systolic 98–137; BP diastolic 63–82
[2022-06-19] MEDS: BLOOD SUGAR DIAGNOSTIC STRIP TEST SCH ×5 (00:32→23:39)
[2022-06-19] MEDS: INSULIN LISPRO 100 UNITS/ML SUBCUT SCH ×5 (00:32→23:42)
[2022-06-19] MEDS: IPRATROPIUM/ALBUTEROL 0.5-3(2.5)MG/3ML NEB HHN SCH ×4 (02:26→20:16)
[2022-06-19] MEDS: HYDRALAZINE HCL 50MG TABLET PO SCH ×3 (05:25→21:21)
[2022-06-19] MEDS: DILTIAZEM HCL 60MG TABLET NG SCH ×3 (05:25→21:22)
[2022-06-19 05:40] LABS: BASOPHILS % 0.3 % (0.0-2.0); CHLORIDE 113 mEq/L (98-107); EOSINOPHILS % 0.9 % (0.0-5.0); HEMATOCRIT. 31.7 % (42.0-52.0); HEMOGLOBIN. 10.7 g/dL (14.0-18.0); LYMPHOCYTES % 13.3 % (20.0-50.0); MEAN CORPUSCULAR HEMOGLOBIN 29.4 pg (28.0-32.0); MEAN CORPUSCULAR VOLUME 87.4 fL (80.0-94.0); MEAN PLATELET VOLUME 9.6 fl (7.4-10.4); MONOCYTES % 5.9 % (2.0-8.0); NEUTROPHILS % 79.6 % (40.0-76.0); PLATELET 168 x1000/uL (130-400); RED BLOOD CELL COUNT 3.63 mill/uL (4.7-6.1)
[2022-06-19] MEDS: OMEPRAZOLE 20MG CAPSULE EXTENDED RELEASE PO SCH (06:15)
[2022-06-19] MEDS: FUROSEMIDE 40MG/4ML VIAL IVP SCH (09:49)
[2022-06-19] MEDS: DOCUSATE SODIUM SUGAR FREE 100MG/10ML UDC NG SCH (09:51)
[2022-06-19] MEDS: TAMSULOSIN HCL 0.4MG SR CAPSULE PO SCH (09:52)
[2022-06-19] MEDS: BISACODYL 10MG SUPP PR SCH (09:52)
[2022-06-19] MEDS: INSULIN GLARGINE 100 UNITS/ML SUBCUT SCH ×2 (10:48→21:15)
[2022-06-19 11:17] LABS: BG BASE EXCESS 5.8 mmol/L (-2.0-2.0); BG CARBOXYHEMOGLOBIN 0.3 % (0.5-1.5); BG DEOXYHEMOGLOBIN 5.8 % (0.0-5.0); BG FRACTION INSPIRED OXYGEN 40; BG HCO3 ACT 29.9 mmol/L (22.0-26.0); BG METHEMOGLOBIN 0.2 % (0.0-1.5); BG OXYGEN SATURATION 94.2 % (92.0-98.5); BG OXYHEMOGLOBIN 93.7 % (94.0-97.0); BG PCO2 41.5 mmHg (35.0-45.0); BG PH 7.475 (7.350-7.450); BG PO2 71.6 mmHg (75.0-100.0); BG SAMPLE SITE RIGHT RADIAL; BG TOTAL HEMOGLOBIN 10.1 g/dL (12.0-18.0); BG VENT MODE VENT - AC
[2022-06-19] MEDS: CEFTRIAXONE 1,000 MG in DEXTROSE 5% WATER 50 ML IV SCH (12:01)
[2022-06-19] MEDS: LACTULOSE 20G/30ML UDC PO SCH ×2 (18:08→20:22)
[2022-06-19] MEDS: ACETAMINOPHEN 650MG/20.3ML UDC PO PRN (18:08)
[2022-06-20] VITALS (21 sets, daily range): BP systolic 107–138; BP diastolic 64–80
[2022-06-20] MEDS: ACETAMINOPHEN 650MG/20.3ML UDC PO PRN ×2 (00:16→20:35)
[2022-06-20] MEDS: IPRATROPIUM/ALBUTEROL 0.5-3(2.5)MG/3ML NEB HHN SCH (00:45)
[2022-06-20] MEDS: INSULIN LISPRO 100 UNITS/ML SUBCUT SCH ×3 (05:14→18:02)
[2022-06-20] MEDS: DILTIAZEM HCL 60MG TABLET NG SCH ×3 (05:15→22:45)
[2022-06-20] MEDS: HYDRALAZINE HCL 50MG TABLET PO SCH ×3 (05:15→22:45)
[2022-06-20] MEDS: BLOOD SUGAR DIAGNOSTIC STRIP TEST SCH ×3 (05:16→18:02)
[2022-06-20] MEDS: OMEPRAZOLE 20MG CAPSULE EXTENDED RELEASE PO SCH (05:16)
[2022-06-20 06:30] LABS: BASOPHILS % 0.2 % (0.0-2.0); EOSINOPHILS % 0.8 % (0.0-5.0); HEMATOCRIT. 35.4 % (42.0-52.0); HEMOGLOBIN. 11.6 g/dL (14.0-18.0); MEAN CORPUSCULAR HEMOGLOBIN 29.3 pg (28.0-32.0); MEAN CORPUSCULAR VOLUME 89.7 fL (80.0-94.0); MONOCYTES % 5.3 % (2.0-8.0); NEUTROPHILS % 82.7 % (40.0-76.0); RED BLOOD CELL COUNT 3.95 mill/uL (4.7-6.1); RED CELL DISTRIBUTION WIDTH 13.2 % (11.6-14.6)
[2022-06-20 06:45] LABS: CHLORIDE 114 mEq/L (98-107)
[2022-06-20 08:15] LABS: PLATELET 167 x1000/uL (130-400)
[2022-06-20] MEDS: BISACODYL 10MG SUPP PR SCH (08:55)
[2022-06-20] MEDS: FUROSEMIDE 40MG/4ML VIAL IVP SCH (08:55)
[2022-06-20] MEDS: TAMSULOSIN HCL 0.4MG SR CAPSULE PO SCH (08:58)
[2022-06-20] MEDS: DOCUSATE SODIUM SUGAR FREE 100MG/10ML UDC NG SCH (08:58)
[2022-06-20] MEDS: FINASTERIDE 5MG TABLET PO SCH (09:25)
[2022-06-20] MEDS: INSULIN GLARGINE 100 UNITS/ML SUBCUT SCH ×2 (09:26→22:46)
[2022-06-20] MEDS: CEFTRIAXONE 1,000 MG in DEXTROSE 5% WATER 50 ML IV SCH (13:38)
[2022-06-20] MEDS ORDERED: IPRATROPIUM BROMIDE (0.02%) 0.5MG/2.5ML NEB HHN PRN (14:45)
[2022-06-20] MEDS: IPRATROPIUM BROMIDE (0.02%) 0.5MG/2.5ML NEB HHN SCH ×2 (15:45→20:58)
[2022-06-20] MEDS: LACTULOSE 20G/30ML UDC PO SCH (22:44)
[2022-06-21] VITALS (13 sets, daily range): BP systolic 106–146; BP diastolic 69–96
[2022-06-21] MEDS: BLOOD SUGAR DIAGNOSTIC STRIP TEST SCH ×5 (00:23→23:52)
[2022-06-21] MEDS: INSULIN LISPRO 100 UNITS/ML SUBCUT SCH ×4 (00:35→18:02)
[2022-06-21] MEDS: IPRATROPIUM BROMIDE (0.02%) 0.5MG/2.5ML NEB HHN SCH ×3 (02:27→14:14)
[2022-06-21] MEDS: DILTIAZEM HCL 60MG TABLET NG SCH ×3 (06:33→22:06)
[2022-06-21] MEDS: HYDRALAZINE HCL 50MG TABLET PO SCH ×3 (06:33→22:05)
[2022-06-21 07:41] LABS: BG BASE EXCESS 4.2 mmol/L (-2.0-2.0); BG CARBOXYHEMOGLOBIN 0.7 % (0.5-1.5); BG DEOXYHEMOGLOBIN 7.8 % (0.0-5.0); BG HCO3 ACT 28.4 mmol/L (22.0-26.0); BG METHEMOGLOBIN 0.2 % (0.0-1.5); BG OXYGEN SATURATION 92.1 % (92.0-98.5); BG OXYHEMOGLOBIN 91.3 % (94.0-97.0); BG PCO2 40.7 mmHg (35.0-45.0); BG PH 7.461 (7.350-7.450); BG PO2 61.4 mmHg (75.0-100.0); BG SAMPLE SITE RIGHT RADIAL; BG TOTAL HEMOGLOBIN 11.9 g/dL (12.0-18.0); BG VENT MODE VENT - SIMV
[2022-06-21] MEDS: OMEPRAZOLE 20MG CAPSULE EXTENDED RELEASE PO SCH (08:00)
[2022-06-21] MEDS: FINASTERIDE 5MG TABLET PO SCH (09:00)
[2022-06-21] MEDS: BISACODYL 10MG SUPP PR SCH (09:51)
[2022-06-21] MEDS: FUROSEMIDE 40MG/4ML VIAL IVP SCH (09:51)
[2022-06-21] MEDS: DOCUSATE SODIUM SUGAR FREE 100MG/10ML UDC NG SCH (09:51)
[2022-06-21] MEDS: TAMSULOSIN HCL 0.4MG SR CAPSULE PO SCH (09:52)
[2022-06-21] MEDS: INSULIN GLARGINE 100 UNITS/ML SUBCUT SCH ×2 (09:54→22:07)
[2022-06-21] MEDS: CEFTRIAXONE 1,000 MG in DEXTROSE 5% WATER 50 ML IV SCH (12:56)
[2022-06-21] MEDS: ACETAMINOPHEN 650MG/20.3ML UDC PO PRN (22:05)
[2022-06-21] MEDS: LACTULOSE 20G/30ML UDC PO SCH (22:05)
[2022-06-22] VITALS (12 sets, daily range): BP systolic 104–133; BP diastolic 68–86
[2022-06-22] MEDS: INSULIN LISPRO 100 UNITS/ML SUBCUT SCH ×8 (00:12→23:28)
[2022-06-22] MEDS: IPRATROPIUM BROMIDE (0.02%) 0.5MG/2.5ML NEB HHN SCH ×4 (02:28→20:36)
[2022-06-22] MEDS: ACETAMINOPHEN 650MG/20.3ML UDC PO PRN (05:46)
[2022-06-22] MEDS: HYDRALAZINE HCL 50MG TABLET PO SCH ×3 (05:47→21:32)
[2022-06-22] MEDS: DILTIAZEM HCL 60MG TABLET NG SCH ×3 (05:47→21:32)
[2022-06-22] MEDS: BLOOD SUGAR DIAGNOSTIC STRIP TEST SCH ×4 (05:48→23:26)
[2022-06-22 06:39] LABS: BASOPHILS % 0.7 % (0.0-2.0); EOSINOPHILS % 1.1 % (0.0-5.0); LYMPHOCYTES % 13.3 % (20.0-50.0); MEAN CORPUSCULAR HEMOGLOBIN 29.1 pg (28.0-32.0); MEAN CORPUSCULAR VOLUME 92.9 fL (80.0-94.0); MEAN PLATELET VOLUME 9.7 fl (7.4-10.4); MONOCYTES % 4.5 % (2.0-8.0); NEUTROPHILS % 80.4 % (40.0-76.0); PLATELET 135 x1000/uL (130-400); RED BLOOD CELL COUNT 3.77 mill/uL (4.7-6.1); RED CELL DISTRIBUTION WIDTH 13.7 % (11.6-14.6)
[2022-06-22 07:53] LABS: CHLORIDE 115 mEq/L (98-107)
[2022-06-22 09:17] LABS: BG BASE EXCESS 4.1 mmol/L (-2.0-2.0); BG CARBOXYHEMOGLOBIN 0.2 % (0.5-1.5); BG DEOXYHEMOGLOBIN 5.3 % (0.0-5.0); BG FRACTION INSPIRED OXYGEN 30; BG HCO3 ACT 26.9 mmol/L (22.0-26.0); BG METHEMOGLOBIN 0.3 % (0.0-1.5); BG OXYGEN SATURATION 94.7 % (92.0-98.5); BG OXYHEMOGLOBIN 94.2 % (94.0-97.0); BG PCO2 33.9 mmHg (35.0-45.0); BG PH 7.517 (7.350-7.450); BG PO2 73.9 mmHg (75.0-100.0); BG SAMPLE SITE RIGHT RADIAL; BG TOTAL HEMOGLOBIN 10.7 g/dL (12.0-18.0); BG VENT MODE VENT - SIMV
[2022-06-22] MEDS: FUROSEMIDE 40MG/4ML VIAL IVP SCH (10:55)
[2022-06-22] MEDS: DOCUSATE SODIUM SUGAR FREE 100MG/10ML UDC NG SCH (10:55)
[2022-06-22] MEDS: TAMSULOSIN HCL 0.4MG SR CAPSULE PO SCH (10:55)
[2022-06-22] MEDS: OMEPRAZOLE 20MG CAPSULE EXTENDED RELEASE PO SCH (10:56)
[2022-06-22] MEDS: INSULIN GLARGINE 100 UNITS/ML SUBCUT SCH ×2 (10:58→21:32)
[2022-06-22] MEDS: BISACODYL 10MG SUPP PR SCH (10:59)
[2022-06-22] MEDS: CEFTRIAXONE 1,000 MG in DEXTROSE 5% WATER 50 ML IV SCH (13:11)
[2022-06-22] MEDS: LACTULOSE 20G/30ML UDC PO SCH (21:31)
[2022-06-23] VITALS (12 sets, daily range): BP systolic 108–132; BP diastolic 71–80
[2022-06-23] MEDS: IPRATROPIUM BROMIDE (0.02%) 0.5MG/2.5ML NEB HHN SCH ×4 (02:00→20:24)
[2022-06-23 05:39] LABS: BASOPHILS % 0.3 % (0.0-2.0); EOSINOPHILS % 1.2 % (0.0-5.0); HEMATOCRIT. 30.3 % (42.0-52.0); HEMOGLOBIN. 10.1 g/dL (14.0-18.0); MEAN CORPUSCULAR HEMOGLOBIN 29.3 pg (28.0-32.0); MEAN CORPUSCULAR VOLUME 87.7 fL (80.0-94.0); MEAN PLATELET VOLUME 9.5 fl (7.4-10.4); MONOCYTES % 5.6 % (2.0-8.0); NEUTROPHILS % 73.9 % (40.0-76.0); PLATELET 169 x1000/uL (130-400); RED BLOOD CELL COUNT 3.45 mill/uL (4.7-6.1); RED CELL DISTRIBUTION WIDTH 12.9 % (11.6-14.6)
[2022-06-23] MEDS: DILTIAZEM HCL 60MG TABLET NG SCH ×3 (06:09→21:49)
[2022-06-23] MEDS: HYDRALAZINE HCL 50MG TABLET PO SCH ×3 (06:09→21:50)
[2022-06-23] MEDS: BLOOD SUGAR DIAGNOSTIC STRIP TEST SCH ×3 (06:10→18:40)
[2022-06-23] MEDS: INSULIN LISPRO 100 UNITS/ML SUBCUT SCH ×6 (06:10→18:46)
[2022-06-23] MEDS: ACETAMINOPHEN 650MG/20.3ML UDC PO PRN (07:05)
[2022-06-23 08:25] LABS: CHLORIDE 115 mEq/L (98-107)
[2022-06-23] MEDS ORDERED: FUROSEMIDE 40MG TABLET PO SCH (09:00)
[2022-06-23 09:11] LABS: BG BASE EXCESS 2.7 mmol/L (-2.0-2.0); BG CARBOXYHEMOGLOBIN 0.4 % (0.5-1.5); BG DEOXYHEMOGLOBIN 7.2 % (0.0-5.0); BG FRACTION INSPIRED OXYGEN 30; BG HCO3 ACT 26.1 mmol/L (22.0-26.0); BG METHEMOGLOBIN 0.1 % (0.0-1.5); BG OXYGEN SATURATION 92.8 % (92.0-98.5); BG OXYHEMOGLOBIN 92.3 % (94.0-97.0); BG PCO2 35.6 mmHg (35.0-45.0); BG PH 7.483 (7.350-7.450); BG PO2 66.9 mmHg (75.0-100.0); BG SAMPLE SITE LEFT RADIAL; BG TOTAL HEMOGLOBIN 10.1 g/dL (12.0-18.0); BG VENT MODE VENT - SIMV
[2022-06-23] MEDS: OMEPRAZOLE 20MG CAPSULE EXTENDED RELEASE PO SCH (10:43)
[2022-06-23] MEDS: BISACODYL 10MG SUPP PR SCH (10:43)
[2022-06-23] MEDS: TAMSULOSIN HCL 0.4MG SR CAPSULE PO SCH (10:43)
[2022-06-23] MEDS: DOCUSATE SODIUM SUGAR FREE 100MG/10ML UDC NG SCH (10:43)
[2022-06-23] MEDS: INSULIN GLARGINE 100 UNITS/ML SUBCUT SCH ×2 (10:47→21:50)
[2022-06-23] MEDS: CEFTRIAXONE 1,000 MG in DEXTROSE 5% WATER 50 ML IV SCH (15:15)
[2022-06-23] MEDS: ENOXAPARIN 30MG/0.3ML SYR SUBCUT SCH (21:49)
[2022-06-23] MEDS: LACTULOSE 20G/30ML UDC PO SCH (21:49)
[2022-06-24] VITALS (17 sets, daily range): BP systolic 104–141; BP diastolic 50–79
[2022-06-24] MEDS: INSULIN LISPRO 100 UNITS/ML SUBCUT SCH ×7 (01:36→18:55)
[2022-06-24] MEDS: IPRATROPIUM BROMIDE (0.02%) 0.5MG/2.5ML NEB HHN SCH ×3 (02:07→16:25)
[2022-06-24 05:54] LABS: CLARITY URINE CLEAR (CLEAR); COLOR URINE DARK YELLOW (YELLOW); KETONES URINE TRACE (NEGATIVE); LEUKOCYTE ESTERASE URINE 1+ (NEGATIVE); NITRITE URINE NEGATIVE (NEGATIVE); OCCULT BLOOD URINE TRACE (NEGATIVE); PH URINE 5.5 (4.5-8.0); PROTEIN URINE 1+ (NEGATIVE)
[2022-06-24 06:26] LABS: CHLORIDE 116 mEq/L (98-107)
[2022-06-24 06:31] LABS: BASOPHILS % 0.5 % (0.0-2.0); EOSINOPHILS % 1.6 % (0.0-5.0); HEMATOCRIT. 32.3 % (42.0-52.0); HEMOGLOBIN. 10.7 g/dL (14.0-18.0); LYMPHOCYTES % 21.5 % (20.0-50.0); MEAN CORPUSCULAR HEMOGLOBIN 29.2 pg (28.0-32.0); MEAN CORPUSCULAR VOLUME 88.2 fL (80.0-94.0); MEAN PLATELET VOLUME 9.8 fl (7.4-10.4); MONOCYTES % 5.5 % (2.0-8.0); NEUTROPHILS % 70.9 % (40.0-76.0); PLATELET 167 x1000/uL (130-400); RED BLOOD CELL COUNT 3.66 mill/uL (4.7-6.1)
[2022-06-24] MEDS: DILTIAZEM HCL 60MG TABLET NG SCH (06:32)
[2022-06-24] MEDS: HYDRALAZINE HCL 50MG TABLET PO SCH ×3 (06:32→21:19)
[2022-06-24] MEDS: BLOOD SUGAR DIAGNOSTIC STRIP TEST SCH ×4 (06:33→18:00)
[2022-06-24] MEDS: ENOXAPARIN 30MG/0.3ML SYR SUBCUT SCH ×2 (08:27→20:08)
[2022-06-24] MEDS: DOCUSATE SODIUM SUGAR FREE 100MG/10ML UDC NG SCH (08:28)
[2022-06-24] MEDS: TAMSULOSIN HCL 0.4MG SR CAPSULE PO SCH (08:28)
[2022-06-24] MEDS: OMEPRAZOLE 20MG CAPSULE EXTENDED RELEASE PO SCH (08:28)
[2022-06-24] MEDS: BISACODYL 10MG SUPP PR SCH (08:29)
[2022-06-24] MEDS: INSULIN GLARGINE 100 UNITS/ML SUBCUT SCH ×2 (10:39→21:24)
[2022-06-24] MEDS ORDERED: DILTIAZEM HCL 60MG TABLET GT SCH (12:00)
[2022-06-24] MEDS: CEFTRIAXONE 1,000 MG in DEXTROSE 5% WATER 50 ML IV SCH (12:44)
[2022-06-24] MEDS: HYDRALAZINE 20MG/ML VIAL IV PRN (15:05)
[2022-06-24] MEDS ORDERED: DEXTROSE 5% WATER 1,000 ML IV ONE (16:45)
[2022-06-24] MEDS: DILTIAZEM HCL 30MG TABLET GT SCH (18:59)
[2022-06-24] MEDS: LACTULOSE 20G/30ML UDC PO SCH (20:08)
[2022-06-25] VITALS (12 sets, daily range): BP systolic 98–130; BP diastolic 61–84
[2022-06-25] MEDS: DILTIAZEM HCL 30MG TABLET GT SCH ×4 (00:17→18:28)
[2022-06-25] MEDS: IPRATROPIUM BROMIDE (0.02%) 0.5MG/2.5ML NEB HHN SCH ×2 (00:29→08:36)
[2022-06-25] MEDS: INSULIN LISPRO 100 UNITS/ML SUBCUT SCH ×7 (00:34→18:26)
[2022-06-25] MEDS: BLOOD SUGAR DIAGNOSTIC STRIP TEST SCH ×4 (05:16→18:26)
[2022-06-25] MEDS: HYDRALAZINE HCL 50MG TABLET PO SCH ×3 (05:29→21:47)
[2022-06-25] MEDS: OMEPRAZOLE 20MG CAPSULE EXTENDED RELEASE PO SCH (05:29)
[2022-06-25 06:56] LABS: BASOPHILS % 0.3 % (0.0-2.0); EOSINOPHILS % 3.1 % (0.0-5.0); HEMATOCRIT. 29.3 % (42.0-52.0); HEMOGLOBIN. 9.8 g/dL (14.0-18.0); LYMPHOCYTES % 26.9 % (20.0-50.0); MEAN CORPUSCULAR HEMOGLOBIN 29.2 pg (28.0-32.0); MEAN PLATELET VOLUME 9.8 fl (7.4-10.4); MONOCYTES % 4.7 % (2.0-8.0); PLATELET 162 x1000/uL (130-400); RED BLOOD CELL COUNT 3.36 mill/uL (4.7-6.1); RED CELL DISTRIBUTION WIDTH 12.9 % (11.6-14.6)
[2022-06-25 07:04] LABS: CHLORIDE 111 mEq/L (98-107)
[2022-06-25] MEDS: TAMSULOSIN HCL 0.4MG SR CAPSULE PO SCH (09:07)
[2022-06-25] MEDS: ENOXAPARIN 30MG/0.3ML SYR SUBCUT SCH ×2 (09:08→21:48)
[2022-06-25] MEDS: DOCUSATE SODIUM SUGAR FREE 100MG/10ML UDC NG SCH (09:08)
[2022-06-25] MEDS: BISACODYL 10MG SUPP PR SCH (09:08)
[2022-06-25] MEDS: INSULIN GLARGINE 100 UNITS/ML SUBCUT SCH ×2 (09:10→21:55)
[2022-06-25] MEDS: CEFTRIAXONE 1,000 MG in DEXTROSE 5% WATER 50 ML IV SCH (12:54)
[2022-06-25] MEDS: LACTULOSE 20G/30ML UDC PO SCH (21:47)
[2022-06-26] VITALS (10 sets, daily range): BP systolic 112–137; BP diastolic 64–86
[2022-06-26] MEDS: IPRATROPIUM BROMIDE (0.02%) 0.5MG/2.5ML NEB HHN SCH ×3 (00:46→16:15)
[2022-06-26] MEDS: DILTIAZEM HCL 30MG TABLET GT SCH ×3 (01:04→11:30)
[2022-06-26] MEDS: INSULIN LISPRO 100 UNITS/ML SUBCUT SCH ×6 (01:04→16:33)
[2022-06-26] MEDS: BLOOD SUGAR DIAGNOSTIC STRIP TEST SCH ×3 (05:25→11:44)
[2022-06-26] MEDS: HYDRALAZINE HCL 50MG TABLET PO SCH ×2 (05:43→14:44)
[2022-06-26] MEDS: OMEPRAZOLE 20MG CAPSULE EXTENDED RELEASE PO SCH (05:43)
[2022-06-26] MEDS: DOCUSATE SODIUM SUGAR FREE 100MG/10ML UDC NG SCH (08:22)
[2022-06-26] MEDS: BISACODYL 10MG SUPP PR SCH (08:22)
[2022-06-26] MEDS: TAMSULOSIN HCL 0.4MG SR CAPSULE PO SCH (08:23)
[2022-06-26] MEDS: ENOXAPARIN 30MG/0.3ML SYR SUBCUT SCH (08:24)
[2022-06-26] MEDS: INSULIN GLARGINE 100 UNITS/ML SUBCUT SCH (09:03)
[2022-06-26 09:44] LABS: HEMATOCRIT. 29.3 % (42.0-52.0); HEMOGLOBIN. 9.9 g/dL (14.0-18.0); MEAN CORPUSCULAR HEMOGLOBIN 29.1 pg (28.0-32.0); MEAN PLATELET VOLUME 9.5 fl (7.4-10.4); PLATELET 154 x1000/uL (130-400); RED CELL DISTRIBUTION WIDTH 12.9 % (11.6-14.6)
[2022-06-26 10:03] LABS: CHLORIDE 113 mEq/L (98-107)
[2022-06-26 12:12] LABS: NUCLEATED RED BLOOD CELLS 2 /100 WBC; PLATELET ESTIMATE NORMAL
== END 2022-06-26 18:31 | DRG 4 ==
LOC: OR 05:24 → MICUNO 10:23 → MICUSO 06-06 18:30 → 5EST 06-20 02:40
PROVIDERS: ADMIT Internal Medicine; ATTEND Internal Medicine
PROC: 0RG10A0 Fusion of Cervical Vertebral Joint with Interbody Fusion Device, Anterior Approach, Anterior Column, Open Approach (ICD-10-PCS; 2022-06-03)
PROC: 4A11X4G Monitoring of Peripheral Nervous Electrical Activity, Intraoperative, External Approach (ICD-10-PCS; 2022-06-03)
PROC: 01N10ZZ Release Cervical Nerve, Open Approach (ICD-10-PCS; 2022-06-03)
PROC: 0BH17EZ Insertion of Endotracheal Airway into Trachea, Via Natural or Artificial Opening (ICD-10-PCS; 2022-06-03)
PROC: 5A1945Z Respiratory Ventilation, 24-96 Consecutive Hours (ICD-10-PCS; 2022-06-03)
PROC: 02HV33Z Insertion of Infusion Device into Superior Vena Cava, Percutaneous Approach (ICD-10-PCS; 2022-06-04)
PROC: B548ZZA Ultrasonography of Superior Vena Cava, Guidance (ICD-10-PCS; 2022-06-04)
PROC: 5A0945A Assistance with Respiratory Ventilation, 24-96 Consecutive Hours, High Flow/Velocity Cannula (ICD-10-PCS; 2022-06-06)
PROC: 5A1955Z Respiratory Ventilation, Greater than 96 Consecutive Hours (ICD-10-PCS; principal; 2022-06-09)
PROC: 06HY33Z Insertion of Infusion Device into Lower Vein, Percutaneous Approach (ICD-10-PCS; 2022-06-09)
PROC: 5A12012 Performance of Cardiac Output, Single, Manual (ICD-10-PCS; 2022-06-09)
PROC: 4A00X4Z Measurement of Central Nervous Electrical Activity, External Approach (ICD-10-PCS; 2022-06-11)
PROC: 02HV33Z Insertion of Infusion Device into Superior Vena Cava, Percutaneous Approach (ICD-10-PCS; 2022-06-15)
PROC: B548ZZA Ultrasonography of Superior Vena Cava, Guidance (ICD-10-PCS; 2022-06-15)
PROC: 0B110F4 Bypass Trachea to Cutaneous with Tracheostomy Device, Open Approach (ICD-10-PCS; 2022-06-16)
PROC: 0GBJ0ZZ Excision of Thyroid Gland Isthmus, Open Approach (ICD-10-PCS; 2022-06-16)
PROC: 0DH68UZ Insertion of Feeding Device into Stomach, Via Natural or Artificial Opening Endoscopic (ICD-10-PCS; 2022-06-17)
DX: A41.9 Sepsis, unspecified organism (principal); N17.0 Acute kidney failure with tubular necrosis; G82.50 Quadriplegia, unspecified; E43 Unspecified severe protein-calorie malnutrition; J15.0 Pneumonia due to Klebsiella pneumoniae; G93.1 Anoxic brain damage, not elsewhere classified; M47.12 Other spondylosis with myelopathy, cervical region; E87.0 Hyperosmolality and hypernatremia; E87.4 Mixed disorder of acid-base balance; M48.02 Spinal stenosis, cervical region; I46.9 Cardiac arrest, cause unspecified; I13.0 Hypertensive heart and chronic kidney disease with heart failure and stage 1 through stage 4 chronic kidney disease, or unspecified chronic kidney disease; I50.30 Unspecified diastolic (congestive) heart failure; J96.01 Acute respiratory failure with hypoxia; E66.2 Morbid (severe) obesity with alveolar hypoventilation; Z20.822 Contact with and (suspected) exposure to COVID-19; E11.22 Type 2 diabetes mellitus with diabetic chronic kidney disease; E87.5 Hyperkalemia; E78.5 Hyperlipidemia, unspecified; N18.1 Chronic kidney disease, stage 1; M47.22 Other spondylosis with radiculopathy, cervical region; E87.6 Hypokalemia; R13.12 Dysphagia, oropharyngeal phase; E11.65 Type 2 diabetes mellitus with hyperglycemia; M50.20 Other cervical disc displacement, unspecified cervical region; E87.20 Acidosis, unspecified; D63.1 Anemia in chronic kidney disease; I48.91 Unspecified atrial fibrillation; R74.01 Elevation of levels of liver transaminase levels; Z88.8 Allergy status to other drugs, medicaments and biological substances; Z79.4 Long term (current) use of insulin; Z86.73 Personal history of transient ischemic attack (TIA), and cerebral infarction without residual deficits; Z68.36 Body mass index [BMI] 36.0-36.9, adult; Z79.899 Other long term (current) drug therapy; Z68.37 Body mass index [BMI] 37.0-37.9, adult; Z79.82 Long term (current) use of aspirin
CPT/HCPCS: 31500; 36415; 36573; 36600; 70551; 71045; 71275; 72040; 72141; 74018; 76000; 76604; 76770; 80048; 80053; 80076; 81003; 82375; 82550; 82607; 82728; 82746; 82805; 82962; 83036; 83540; 83550; 83735; 84100; 84145; 84478; 84484; 85025; 85044; 86850; 86900; 87070; 87077; 87186; 87426; 88304; 88311; 93005; 93306; 93970; 94002; 94003; 94640; 95816; 95925; 95926; 95928; 95929; A6261; C1713; C1725; C9803; J0330; J0360; J0456; J0461; J0690; J0692; J0696; J1100; J1160; J1170; J1580; J1650; J1815; J1940; J2250; J2270; J2310; J2370; J2405; J2704; J2710; J2930; J3010; J3490; J7030; J7050; J7060; J7070; J7608; L0172; L3908; Q9967; A4315; C1762